=== PATIENT | female | born 1935 | race Asian ===

== ENCOUNTER 2017-06-20 21:53 | Emergency (ER) | payer MEDICARE ==
[~2017-06-20] VITALS: Ht 152.4 cm; Wt 57.0 kg
[2017-06-20] MEDS ORDERED: MEMA1CAP PO (22:03)
[2017-06-20] MEDS ORDERED: ACET-784 PO (22:03)
[2017-06-20] MEDS ORDERED: HALOPERIDOL LACTATE 5 MG/ML VIAL IM PRN (23:00)
[2017-06-20] MEDS ORDERED: PERTUSS(ACELL),DIPH,TET VAC/PF 0.5 ML VIAL IM ONE (23:00)
[2017-06-21 00:52] VITALS: BP 135/88
== END 2017-06-21 00:56 | disposition home or self-care (01) ==
LOC: EMS 21:55
DX: S00.93XA Contusion of unspecified part of head, initial encounter (principal); W06.XXXA Fall from bed, initial encounter; Y93.89 Activity, other specified; Y92.89 Other specified places as the place of occurrence of the external cause; Y99.8 Other external cause status
CPT/HCPCS: 70450; 90471; 90715; 96372; 99284; J1630